=== PATIENT | female | born 1955 | race Hispanic/Latino ===

== ENCOUNTER 2020-10-23 07:14 | Day surgery (SDC) | payer OTHER ==
[2020-10-23] MEDS ORDERED: SODIUM CHLORIDE 0.9% 1000 ML 1,000 ML ONE (07:49)
[2020-10-23] MEDS ORDERED: WATER FOR IRRIG STERILE 250 ML BOTTLE IR ONE (07:53)
[2020-10-23] MEDS ORDERED: WATER FOR IRRIG STERILE 1,000 ML BOTTLE ONE (07:53)
[2020-10-23] MEDS ORDERED: propofoL 200 MG/20 ML VIAL IV ONE ×3 (07:54→09:15)
[2020-10-23] MEDS ORDERED: fentaNYL 100 MCG/2 ML INJ ONE (07:57)
[2020-10-23] MEDS ORDERED: LIDOCAINE MPF (2%) 20 MG/1 ML VIAL 5 ML ONE (07:58)
--- NOTE | 2020-10-23 08:01 | Anesthesia Consultation ---
Anesthesia Consult and Med Hx Date of service: 10/23/20 - Airway Anesthetic Teeth Evaluation: Good, Chipped (cracked teeth #8, #9 ) ROM Head & Neck: Adequate Mental/Hyoid Distance: Adequate Mallampati Class: Class I Intubation Access Assessment: Good - Pulmonary Exam CTA: Yes - Cardiac Exam Cardiac Exam: RRR - Pre-Operative Health Status ASA Pre-Surgery Classification: ASA1 Proposed Anesthetic Plan: MAC - Pulmonary Hx Smoking: No Hx Respiratory Symptoms: No - Cardiovascular System Hx Hypertension: No - Central Nervous System CVA: No - Gastrointestinal Hx Gastroesophageal Reflux Disease: No - Endocrine Hx Renal Disease: No Hx Liver Disease: No Hx Insulin Dependent Diabetes: No Hx Thyroid Disease: No - Other Systems Hx Obesity: No
--- NOTE | 2020-10-23 08:01 | Anesthesia Day of Surgery ---
Anesthesia Day of Surgery - Day of Surgery Patient Examined: Yes Patient H&P Reviewed: Yes Patient is NPO: Yes
[2020-10-23] MEDS ORDERED: SODIUM CHLORIDE 0.9% 1000 ML 1,000 ML IV SCH (08:15)
--- NOTE | 2020-10-23 09:27 | Short Stay Summary ---
Short Stay Documentation Date of service: 10/23/20 Narrative H&P: The patient reports for surveillance colonoscopy. She has a history of serrated polyps and may have serrated polyposis syndrome. Her last study was over 3 years ago. - History Past Medical History: No medical history Past Surgical History: no appendectomy, no thyroidectomy, no hysterectomy, no bowel surgery Social history: no significant social history, , lives with family, no smoking, no alcohol abuse - Allergies and Medications Current Medications: Allergies mepivacaine [From Carbocaine] Allergy (Verified 10/23/20 08:10) Unknown Home Medications Medication Instructions Recorded Confirmed Last Taken Type Estradiol (Once Weekly) 10/23/20 Unknown History Active Medications Sodium Chloride (Nacl 0.9% 1000 Ml) 1,000 mls @ 50 mls/hr IV DIRECT TANA Last Admin: 10/23/20 08:00 Dose: 50 mls/hr Documented by: - Physical exam General appearance: no acute distress, well-nourished Integumentary: no rash, no growths, no abnormal pigmentation HEENT: Atraumatic, PERRLA, EOMI, Mucous membr. moist/pink Lungs: Clear to auscultation, Normal air movement Breasts: deferred Heart: Regular rate, Normal S1, Normal S2, No murmurs Gastrointestinal: normoactive bowel sounds, no tenderness, no distended, no masses, no guarding, no organomegaly, no obese Female Genitourinary: deferred Rectal Exam: normal exam-external/orifice, normal rectal tone, no mass Extremities: no ischemia, pulses intact, pulses symmetrical, No edema, normal temperature, normal color, Full ROM Neurological: Normal gait, Normal speech, Strength at 5/5 X4 ext, Normal tone, Sensation intact, Cranial nerves 3-12 NL - Brief post op/procedure progress note Date of procedure: 10/23/20 Findings: see dicated report Surgeon: ZEINAB MANJARREZ Estimated blood loss: none Pathology: list (flat hepatic flexure polyp) Specimen disposition: to lab Condition: stable - Disposition Condition at discharge: Good Disposition: DC-01 TO HOME OR SELFCARE - Discharge Diagnoses (1) History of colon polyps Status: Acute Short Stay Discharge Plan Activity: other (No driving for 24 hours) Weight Bearing Status: Weight Bear as Tolerated Diet: regular Follow up with: BRANDY SULLIVAN [Other] - 7 Days
--- NOTE | 2020-10-23 09:32 | Operative Report ---
Operative Report Operative Report: Date of procedure: 10/23/2020 Preprocedure diagnosis: History of serrated colon polyps, suspected serrated po lyposis syndrome. Last study over 3 years ago. Post procedure diagnosis: 8 mm flat polyp in the hepatic flexure, otherwise normal study. Procedure: Colonoscopy to the cecum with saline injection and snare polypectomy with cautery. Instillation of supra vital dye, methylene blue Endoscopist: Dr. Peters Anesthesia: Monitored anesthesia care per anesthesia department Estimated blood loss: 0 Medications: Monitored anesthesia care. See separate report by anesthesia for details. After careful discussion of the nature and purpose of the procedure as well as details of the technique risks benefits and alternatives the patient gave consent. Please see recent history and physical from the office. The patient was placed in the left lateral decubitus position and medicated per anesthesia. A rectal exam was performed sphincter tone was normal there were no masses palpable. The [employer] 570 scope was passed transanally and advanced under continuous direct vision without difficulty to the cecum. The colon was well prepared. The cecum was normal. The ascending colon was normal and on forward and retroflexed views. The right colon was imaged with narrowband light and this wa s followed by spraying methylene blue to improve the visibility of flat lesions. There was an 8 mm flat polyp in the hepatic flexure. The polyp was injected with saline submucosally and removed by snare with electrocautery. The polyp was retrieved by suction. The transverse colon, descending colon, and sigmoid colon were normal by similar imaging using NBI light and methylene blue. The rectum was normal on forward and retroflexed views. The procedure was well- tolerated overall and the patient was observed in recovery. Conclusions: Small flat polyp in the hepatic flexure, otherwise normal study. Plan: Await pathology. Repeat colonoscopy in 2 to 3 years. Signed electronically: Mani Peters M.D.
[2020-10-23 10:09] VITALS: BP 123/59
--- NOTE | 2020-10-23 12:57 | Post Anesthesia Evaluation ---
- Post Anesthesia Evaluation Patient Participated: Yes Airway Patent: Yes Stable Respiratory Function: Yes Nausea/Vomiting: No Temp > 96.8F: Yes Pain Manageable: Yes Adequeate Hydration: Yes Anesthesia Complications: No
[2020-10-23] MEDS ORDERED: METHYLENE BLUE 50 MG/10 ML AMP ONE (14:44)
== END 2020-10-23 10:05 | disposition home or self-care (01) ==
LOC: GIO 07:14
PROVIDERS: ATTEND Internal Medicine Gastroenterology
DX: Z12.11 Encounter for screening for malignant neoplasm of colon (principal); K63.5 Polyp of colon; Z86.010 Personal history of colon polyps; Z88.8 Allergy status to other drugs, medicaments and biological substances; Z79.899 Other long term (current) drug therapy; Z90.49 Acquired absence of other specified parts of digestive tract; Z98.890 Other specified postprocedural states; Z90.710 Acquired absence of both cervix and uterus
CPT/HCPCS: 45381; 45385; 88305; J2704; J3010; J7030; Q9968